=== PATIENT | female | born 1960 | race Caucasian/White ===

== ENCOUNTER 2016-02-25 08:25 | Emergency (ER) | payer OTHER ==
[~2016-02-25] VITALS: Ht 160 cm; Wt 118.0 kg
[~2016-02-25 08:25] MED LIST: AMOX875T PO; CLAR10TA13 PO; NAPR500 PO; XARE10TA PO
[2016-02-25 08:31] VITALS: BP 136/81; PULSE 106; RESP 16; TEMP 98.6; O2SAT 97
[2016-02-25] MEDS ORDERED: GABA300C5 PO (08:37)
[2016-02-25] MEDS ORDERED: ATOR10TA15 PO (08:37)
--- NOTE | 2016-02-25 08:56 | PD ---
HPI Chief Complaint: Musculoskeletal Complaint Time Seen by Provider: 08:47 Travel History International Travel<30 days: No Contact w/Intl Traveler<30days: No Traveled to known affect area: No History of Present Illness HPI Patient is a 55-year-old female with history of left-sided knee replacement, presents to emergency room with complaints of left sided knee pain. Patient reports that she has history of left foot drop, reports that she tripped and fell onto her left knee last night around 2 AM. Patient denies trauma to the head or neck. Patient denies loss of consciousness. Patient reports that she was able to get up and ambulate after her fall, reports increased pain to her knee and pain with ambulation. PFSH Past Medical History Hx Anticoagulant Therapy: Yes Anxiety: Yes Depression: Yes Cancer: No Cardiovascular Problems: Yes High Cholesterol: Yes Diabetes: Yes (PMD has taken her off meds) Patient Takes Glucophage: No Diminished Hearing: No Endocrine: Yes Genitourinary: No Implanted Vascular Access Dvce: No Musculoskeletal: Yes Neurologic: No Psychiatric: Yes Reproductive: No Respiratory: No Thyroid Disease: Yes (PMD has taken her off meds) Tetanus Vaccination: < 5 Years Influenza Vaccination: No ?: Not Menopausal: Yes : 3 Para: 2 Miscarriage: 1 : 0 Past Surgical History Cardiac Surgery: No Section: Yes (1987 and 1983) Gynecologic Surgery: Yes (hysterectomy, ) Hysterectomy: Yes Pacemaker: No Other Surgery: Yes Social History Alcohol Use: Yes ("3 glasses of wine over period of 2 weeks") Tobacco Use: Yes (02/25 PPD) Substance Use: No Allergies-Medications (Allergen,Severity, Reaction): Coded Allergies: Vicodin (Verified Allergy, Severe, Rash, 02/25/16) Reported Meds & Prescriptions Reported Meds & Active Scripts Active Ibuprofen 600 Mg Tab 600 Mg PO Q6H PRN Reported Gabapentin 300 Mg Cap 300 Mg PO BID Atorvastatin (Atorvastatin Calcium) 10 Mg Tab 10 Mg PO HS Review of Systems General / Constitutional: No: Fever Eyes: No: Visual changes HENT: No: Headaches Cardiovascular: No: Chest Pain or Discomfort Respiratory: No: Shortness of Breath Gastrointestinal: No: Abdominal Pain Genitourinary: No: Dysuria Musculoskeletal: Positive: Limited ROM, Pain (left knee) Skin: No Rash Neurologic: No: Weakness Psychiatric: No: Depression Endocrine: No: Polydipsia Hematologic/Lymphatic: No: Easy Bruising Physical Exam Narrative GENERAL: nad, nontoxic SKIN: Warm and dry. HEAD: Atraumatic. Normocephalic. EYES: Pupils equal and round. No scleral icterus. No injection or drainage. ENT: No nasal bleeding or discharge. Mucous membranes pink and moist. NECK: Trachea midline. No JVD. CARDIOVASCULAR: Regular rate and rhythm. No murmur appreciated. RESPIRATORY: No accessory muscle use. Clear to auscultation. Breath sounds equal bilaterally. GASTROINTESTINAL: Abdomen soft, non-tender, nondistended. Hepatic and splenic margins not palpable. MUSCULOSKELETAL: No obvious deformities. LLE: pt with good rom to left hip, patient with pain with ROM to left knee and ankle, no obvious deformity or no open fracture appreciated, pt with bruising to her left anterior tib/fib, pulses intact, neurovascularly intact NEUROLOGICAL: Awake and alert. No obvious cranial nerve deficits. Motor grossly within normal limits. Normal speech. PSYCHIATRIC: Appropriate mood and affect; insight and judgment normal. Data Data Last Documented VS Vital Signs Date Time Temp Pulse Resp B/P Pulse Ox O2 Delivery O2 Flow Rate FiO2 02/25/16 08:31 98.6 106 16 136/81 97 Orders Knee, Complete (4vws) (02/25/16 ) Tibia/Fibula (Ap/Lat) (02/25/16 ) Ankle, Complete ([id number]) (02/25/16 ) Ibuprofen (Motrin) (02/25/16 09:00) MDM Medical Decision Making Medical Screen Exam Complete: Yes Emergency Medical Condition: Yes Interpretation(s) Vital Signs Date Time Temp Pulse Resp B/P Pulse Ox O2 Delivery O2 Flow Rate FiO2 02/25/16 08:31 98.6 106 16 136/81 97 Last Impressions Tibia/Fibula X-Ray 02/25/16 0000 Signed Impressions: Service Date/Time: Thursday, February 25, 2016 09:20 - CONCLUSION: No acute disease. Ryan Maciel MD Knee X-Ray 02/25/16 0000 Signed Impressions: Service Date/Time: Thursday, February 25, 2016 09:07 - CONCLUSION: No acute disease. Ryan Maciel MD Ankle X-Ray 02/25/16 0000 Signed Impressions: Service Date/Time: Thursday, February 25, 2016 09:22 - CONCLUSION: 1. Plantar calcaneal spur. Ryan Maciel MD Differential Diagnosis Knee fracture, patellar dislocation, patellar fracture, tibia or fibular fracture, knee contusion Narrative Course 55-year-old female with history of left-sided knee replacement, presents to emergency room with complaints of knee pain after fall yesterday. She reports that she tripped and fell and landed her left knee last night. Reports that she has been able to ambulate but with pain and difficulty. Patient with no trauma to head or neck. No loss consciousness. X-ray of knee obtained for evaluation of possible fracture. Motion ordered for pain. Patient currently has ice pack on the to help reduce swelling and pain Reviewed x-ray results with patient in detail Last Impressions Tibia/Fibula X-Ray 02/25/16 0000 Signed Impressions: Service Date/Time: Thursday, February 25, 2016 09:20 - CONCLUSION: No acute disease. Ryan Maciel MD Knee X-Ray 02/25/16 0000 Signed Impressions: Service Date/Time: Thursday, February 25, 2016 09:07 - CONCLUSION: No acute disease. Ryan Maciel MD Ankle X-Ray 02/25/16 0000 Signed Impressions: Service Date/Time: Thursday, February 25, 2016 09:22 - CONCLUSION: 1. Plantar calcaneal spur. Ryan Maciel MD Patient was given a copy of her x-ray reports Patient will follow-up with her primary care doctor as well as orthopedic surgeon and return to ER as needed Diagnosis Primary Impression: Knee contusion Qualified Code: S80.02XA - Contusion of left knee, initial encounter Additional Impressions: Knee sprain Qualified Code: S83.92XA - Sprain of left knee, unspecified ligament, initial encounter tibial bone spur plantar calcaneal spur Patient Instructions: General Instructions Additional Instructions: Rest ice and elevate left lower extremity Please take Motrin or acetaminophen for pain Please follow-up with your orthopedic surgeon Please bring your copy of the radiology reports to your doctor's office for follow-up on all studies and all findings from today Return to ER as needed Med/Other Pt SpecificInfo: Prescription(s) given Scripts Ibuprofen 600 Mg [id number] Mg PO Q6H PRN (Pain/Inflammation) #40 TAB Ref 0 Prov:Yenny Quinteros DO 02/25/16 Disposition: 01 DISCHARGE HOME Condition: Stable Yenny Quinteros DO Feb 25, 2016 08:56
[2016-02-25] MEDS ORDERED: IBUPROFEN 600 MG TAB PO ONE (09:00)
--- NOTE | 2016-02-25 10:03 | RADHPO ---
EXAM DATE/TIME: 02/25/2016 09:22 [facility] COMPARISON: ANKLE LEFT COMPLETE ([id number]), August 02, 2013, 19:19. INDICATIONS : Fall. Pain and bruising of proximal tib/fib. MEDICAL HISTORY : None. SURGICAL HISTORY : ORIF proximal tibia. ENCOUNTER: Initial ACUITY: 1 day PAIN SCORE: 7/10 LOCATION: Left proximal tib/fib FINDINGS: Three view exam was performed of the left ankle. The bony structures are in normal alignment. No ev idence of fracture, dislocation, or soft tissue swelling. The ankle mortise is intact. No radiopaqu e foreign bodies are seen. Bony mineralization is normal. CONCLUSION: 1. Plantar calcaneal spur. Ryan Maciel MD on February 25, 2016 at 10:01 Board Certified Radiologist. This report was verified electronically.
--- NOTE | 2016-02-25 10:03 | RADHPO ---
EXAM DATE/TIME: 02/25/2016 09:20 [facility] COMPARISON: TIBIA/FIBULA LEFT (AP/LAT), August 12, 2013, 8:57. INDICATIONS : Fall. Pain and bruising of proximal tib/fib. MEDICAL HISTORY : None. SURGICAL HISTORY : ORIF proximal tibia. ENCOUNTER: Initial ACUITY: 1 day PAIN SCORE: 7/10 LOCATION: Left proximal tib/fib FINDINGS: Previous lateral plate and screw fixation of the proximal tibial metaphysis. Normal bone density. No acute fracture or dislocation. CONCLUSION: No acute disease. Ryan Maciel MD on February 25, 2016 at 10:01 Board Certified Radiologist. This report was verified electronically.
--- NOTE | 2016-02-25 10:06 | RADHPO ---
EXAM DATE/TIME: 02/25/2016 09:07 [facility] COMPARISON: KNEE LEFT COMPLETE (4VWS), August 02, 2013, 16:12. INDICATIONS : Fall. Pain and bruising of proximal tib/fib. MEDICAL HISTORY : None. SURGICAL HISTORY : ORIF proximal tibia. ENCOUNTER: Initial ACUITY: 1 day PAIN SCORE: 7/10 LOCATION: Left proximal tib/fib FINDINGS: Bone density is normal. Lateral plate and screw fixation of the proximal tibial metaphysis is noted. There is spurring of the tibial spines and chondrocalcinosis. Small knee joint effusion. No acute fra cture or dislocation. CONCLUSION: No acute disease. Ryan Maciel MD on February 25, 2016 at 10:04 Board Certified Radiologist. This report was verified electronically.
[2016-02-25] MEDS ORDERED: IBUP-232 PO (10:31)
== END 2016-02-25 10:56 | disposition home or self-care (01) ==
LOC: PHEFT 08:25
DX: S80.02XA Contusion of left knee, initial encounter (principal); S83.92XA Sprain of unspecified site of left knee, initial encounter; M76.892 Other specified enthesopathies of left lower limb, excluding foot; M77.32 Calcaneal spur, left foot
CPT/HCPCS: 73564; 73590; 73610; 99284